=== PATIENT | female | born 1975 | race Caucasian/White ===

== ENCOUNTER → 2023-06-02 | Emergency (ER) | payer OTHER, SELFPAY ==
[~2023-06-02] MED LIST: LORazepam 2 MG/ML VIAL ONE; NA CHLORIDE 0.9% 1,000 ML ONE; TDAP (DIPHTH,PERTUSS(ACELL),TET VAC) 0.5 ML VIAL IMVAC ONE
--- NOTE | 2023-06-02 18:04 | RAD REPORT ---
EXAM DESCRIPTION: CT - [id number] - 06/02/2023 5:49 pm CLINICAL HISTORY: Trauma, head and neck injury. TRAUMA COMPARISON: No comparisons TECHNIQUE: Axial 5 mm thick images of the head were obtained. Axial 2 mm thick images of the cervical spine were obtained with sagittal and coronal reconstruction images generated and reviewed. All CT scans are performed using dose optimization technique as appropriate and may include automated exposure control or mA/KV adjustment according to patient size. FINDINGS: CT HEAD WITHOUT CONTRAST: Limited by motion. No acute hemorrhage, hydrocephalus or extra-axial collection is identified.No area s of brain edema or midline shift. The paranasal sinuses and mastoids are clear.The calvarium is intact. Left frontal scalp hematoma. CT CERVICAL SPINE WITHOUT CONTRAST: No fracture or subluxation.No prevertebral soft tissues swelling is identified. IMPRESSION: No acute intracranial or cervical spine findings.Motion artifact. Left frontal scalp swe lling.
[2023-06-02 18:28] LABS: Barbiturates NEGATIVE (NEGATIVE); Benzodiazepines POSITIVE (NEGATIVE); Cocaine NEGATIVE (NEGATIVE); METHAMPHETAM POSITIVE (NEGATIVE); Methadone NEGATIVE (NEGATIVE); Opiates NEGATIVE (NEGATIVE); Phencyclidine NEGATIVE (NEGATIVE); THC Cannibis NEGATIVE (NEGATIVE)
[2023-06-02 18:32] LABS: Potassium 3.6 mEq/L (3.5-5.1)
[2023-06-02 18:43] LABS: Absolute Lymphocytes (CBC) 1.5 K/uL (0.7-4.9); Hematocrit 42.1 % (36.0-45.0); Lymphocytes % 18.9 % (15.3-44.8); MCV 91.9 fL (80-100); MPV 8.7 fL (7.6-11.3); Platelets 263 thou/uL (152-406); RBC Red Blood Cell Count 4.58 M/uL (3.86-4.86)
--- NOTE | 2023-06-02 19:29 | RAD REPORT ---
EXAM DESCRIPTION: RAD - Knee Right 3 View - 06/02/2023 7:21 pm CLINICAL HISTORY: puncture COMPARISON: No comparisons FINDINGS/IMPRESSION: No acute fracture. No malalignment. No significant focal degenerative changes.
--- NOTE | 2023-06-02 20:29 | ER ---
Nurse's Notes [facility] Name: Polina Bermudez Age: 47 yrs Sex: Female : 1975 Arrival Date: 06/02/2023 Time: 16:56 Bed 3 Private MD: Diagnosis: methamphetamine abuse;Contusion of scalp, initial encounter;Laceration without foreign body of knee Presentation: 06/02 17:17 Chief complaint: EMS states: EMS reports pt is in care home today for public intoxication. tl4 EMS reports pt urinated on herself and then had an unwitnessed fall while PD was cleaning her cell. Pt is unable to coherently answer any questions or communicate. Pt baseline mental status is unknown. Coronavirus screen: At this time, the client does not indicate any symptoms associated with coronavirus-19. Ebola Screen: No symptoms or risks identified at this time. Initial Sepsis Screen: Does the patient meet any 2 criteria? No. Patient's initial sepsis screen is negative. Does the patient have a suspected source of infection? No. Patient's initial sepsis screen is negative. Risk Assessment: Do you want to hurt yourself or someone else? Patient reports no desire to harm self or others. Onset of symptoms was June 02, 2023 at 16:30. 17:17 Method Of Arrival: EMS: [facility] tl4 17:17 Acuity: ASIA 3 tl4 Triage Assessment: 17:24 General: Appears in no apparent distress. Behavior is restless, uncooperative. Pain: tl4 Complains of pain in right leg. EENT: No deficits noted. No signs and/or symptoms were reported regarding the EENT system. Neuro: No deficits noted. Denies weakness blurred vision dizziness, headache. Cardiovascular: No deficits noted. Denies chest pain, diaphoresis, lightheadedness, palpitations, syncope. Respiratory: No deficits noted. Denies cough, shortness of breath. GI: No deficits noted. No signs and/or symptoms were reported involving the gastrointestinal system. : No deficits noted. No signs and/or symptoms were reported regarding the genitourinary system. Derm: No deficits noted. No signs and/or symptoms reported regarding the dermatologic system. Musculoskeletal: Reports pain in right leg. Injury Description: Avulsion sustained to right knee Head injury sustained to forehead is closed, did not have loss of consciousness, swelling noted to left upper forehead. Historical: - Allergies: 17:23 No Known Allergies; tl4 - Home Meds: 17:38 None [Active]; tl4 - PMHx: 17:38 None; tl4 - PSHx: 17:38 None; tl4 - Immunization history:: Adult Immunizations unknown. - Social history:: Smoking status: Patient reports the use of cigarette tobacco products, smokes one-half pack cigarettes per day. Screenin:39 [facility] ED Fall Risk Assessment (Adult) History of falling in the last 3 months, tl4 including since admission Yes- single mechanical fall (1 pt) Confusion or Disorientation Yes (5 pts) Intoxicated or Sedated Yes (3 pts) Impaired Gait Yes (1 pt) Mobility Assist Device Used No (0 pt) Altered Elimination No (0 pt) Score/Fall Risk Level 3 or more points = High Risk Oriented to surroundings, Maintained a safe environment, Educated pt \T\ family on fall prevention, incl call for assistance when getting out of bed, Assessed \T\ reinforced patient's understanding of fall precautions, Provided non-skid footwear, Hourly rounding (assess needs \T\ fall precautionary measures) done, Used ambulatory aids as needed (educated on \T\ assisted with), Used gait belt as appropriate Offered frequent toileting (1:1 observation), Utilized family, sitter, or virtual spool tender as indicated. Abuse screen: Denies threats or abuse. Denies injuries from another. Nutritional screening: No deficits noted. Tuberculosis screening: No symptoms or risk factors identified. Assessment: 17:36 Reassessment: pt refuses to stay in bed or have any monitoring equipment in place. Pt tl4 repeatedly redirected to lay in bed. Pt will require a product safety test engineer. 19:32 Reassessment: Patient appears in no apparent distress at this time. No changes from km8 previously documented assessment. pt being told multiple times to lay back in bed with attempts to get out of bed; tried to reorient pt. 20:30 Reassessment: Patient appears in no apparent distress at this time. No changes from km8 previously documented assessment. 21:13 Reassessment: Patient appears in no apparent distress at this time. No changes from km8 previously documented assessment. BLAYNE Dc tried to call phone number pt provided, but that is not a working number; pt unable to provide any other numbers. 22:36 Reassessment: Patient appears in no apparent distress at this time. Patient and/or km8 family updated on plan of care and expected duration. Pain level reassessed. Patient is alert, oriented x 3, equal unlabored respirations, skin warm/dry/pink. Patient states symptoms have improved. pt A\T\Ox3; pt unaware of how long she has been here and how she got here but does know what she did before being arrested; pt IV d/c'd and pt getting dressed at this time. Vital Signs: 17:17 BP 139 / 94; Pulse 96; Resp 16; Temp 98.1(O); Pulse Ox 100% on R/A; Weight 77.11 kg tl4 (M); Height 5 ft. 5 in. ; 18:50 BP 170 / 105; Pulse 67; Resp 16; Pulse Ox 100% on R/A; tl4 22:35 BP 131 / 99; Pulse 68; Resp 16; Pulse Ox 100% on R/A; km8 17:17 Body Mass Index 28.29 (77.11 kg, 165.1 cm) tl4 ED Course: 17:04 Patient arrived in ED. eb 17:05 Sophie Dao PA-C is PHCP. sb4 17:05 Leighton Figueredo MD is Attending Physician. sb4 17:23 Triage completed. tl4 17:27 Arm band placed on Patient placed in an exam room, on a stretcher. tl4 17:40 Patient has correct armband on for positive identification. Bed in low position. Call tl4 light in reach. Side rails up X2. product safety test engineer at bedside. Provided Education on: ed process. pt refused to leave monitoring equipment in place. Pt is eating her pulse ox and tears off the BP cuff and monitor leads. Noise minimized. Lights dimmed. Moved to private room. pt has open curtain/door to ensure safety of patient and sitter pt refuses to remain covered by gown or blanket. Pt continuously exposes her breasts despite verbal redirection and physical covering for modesty.. 17:43 Maintain EMS IV. Dressing intact. Good blood return noted. Site clean \T\ dry. Gauge \T\ tl 4 site: 20g right forearm. 17:50 CT Head C Spine In Process Unspecified. EDMS 18:20 UDS Sent. tl4 18:20 ETOH Level Sent. tl4 18:23 Basic Metabolic Panel Sent. tl4 18:23 CBC with Diff Sent. tl4 18:52 No provider procedures requiring assistance completed. tl4 19:23 Knee Right 3 View XRAY In Process Unspecified. EDMS 19:25 Brianna Herr, RN is Primary Nurse. km8 22:37 IV discontinued, intact, bleeding controlled, No redness/swelling at site. Pressure km8 dressing applied. Administered Medications: 18:20 Drug: Boostrix Tdap IM 0.5 ml IM once; as a single dose {Note: [employer] t[employer] Lot# [id number], Exp 04/28/2025. VIS 11/19/2020.} Route: IM; Site: right deltoid; 19:25 Follow up: Response: No adverse reaction [facility] 18:20 Drug: NS 0.9% IV 1000 ml IV at 1 bolus Per protocol; 1000 mL bolus Route: IV; Rate: 1 tl4 bolus; Site: right forearm; Delivery: Primary tubing; 19:30 Follow up: IV Status: Completed infusion; IV Intake: 1000ml [facility] 18:20 Drug: Ativan IVP 0.5 mg IVP once Route: IVP; Site: right forearm; tl4 19:25 Follow up: Response: No adverse reaction [facility] 19:30 Drug: NS 0.9% IV 1000 ml IV at 1 bolus Per protocol; 1000 mL bolus Route: IV; Rate: 1 km8 bolus; Site: right forearm; 22:37 Follow up: IV Status: Completed infusion; IV Intake: 1000ml [facility] Medication: 18:52 Vaccine Information Statement (VIS) provided today. Questions and/or concerns tl4 addressed. VIS edition date: November 19, 2020. Intake: 19:30 IV: 1000ml; Total: 1000ml. km8 22:37 IV: 1000ml; Total: 2000ml. km8 Outcome: 20:28 Discharge ordered by MD. mauro 23:12 Patient left the ED. km8 Signatures: Dispatcher [employer] EDMS Charla Alanis Sophia, PAMartinaC PAMartinaC Brianna Lewis RN HARRISON 8 LogdaRanjit woodward RN RN tl4 Corrections: (The following items were deleted from the chart) 17:39 17: Home Meds: Unable to obtain; tl4 tl4 : PMHx: Unable to Obtain; tl4 tl4 PSHx: Unable to Obtain; tl4 tl4
--- NOTE | 2023-06-02 20:29 | EDPHYS ---
Physician Documentation [facility] Name: Polina Bermudez Age: 47 yrs Sex: Female : 1975 Arrival Date: 06/02/2023 Time: 16:56 Bed 3 Private MD: ED Physician Leighton Figueredo HPI: 06/02 17:13 This 47 yrs old Female presents to ER via Unassigned with complaints of fall. sb4 17:13 Patient presents after reported fall while in [facility]. She was arrested earlier today for sb4 public intoxication. While she was in holding, they heard her fall down, noted she had urinated all over herself sustained a hematoma to her left forehead and a small laceration to her right knee. History is very limited due to patient's intoxicated state. Historical: - Allergies: 17:23 No Known Allergies; tl4 - Home Meds: 17:38 None [Active]; tl4 - PMHx: 17:38 None; tl4 - PSHx: 17:38 None; tl4 - Immunization history:: Adult Immunizations unknown. - Social history:: Smoking status: Patient reports the use of cigarette tobacco products, smokes one-half pack cigarettes per day. ROS: 17:13 Unable to obtain ROS due to altered mental status, patient being uncooperative, sb4 Exam: 17:13 ENT: Mucous membranes moist. Cardiovascular: Regular rate and rhythm with a normal S1 sb4 and S2. Respiratory: Lungs have equal breath sounds bilaterally, clear to auscultation and percussion. No rales, rhonchi or wheezes noted. No increased work of breathing, no retractions or nasal flaring. Abdomen/GI: Soft, non-tender, no distension. MS/ Extremity: Pulses equal, no cyanosis. Neurovascular intact. Full, normal range of motion. 17:13 Constitutional: The patient appears in no acute distress, alert, awake, unkempt, 17:13 Head/face: Noted is hematoma, that is moderate, of the forehead, 17:13 Eyes: Pupils: equal, round, and reactive to light and accomodation, Extraocular movements: intact throughout, 17:13 Skin: injury, laceration(s), the wound is approximately 1.5 cm(s), with a depth of .7 cm(s), of the right knee, that can be described as no foreign body, linear, without bleeding, Vital Signs: 17:17 BP 139 / 94; Pulse 96; Resp 16; Temp 98.1(O); Pulse Ox 100% on R/A; Weight 77.11 kg tl4 (M); Height 5 ft. 5 in. ; 18:50 BP 170 / 105; Pulse 67; Resp 16; Pulse Ox 100% on R/A; tl4 22:35 BP 131 / 99; Pulse 68; Resp 16; Pulse Ox 100% on R/A; km8 17:17 Body Mass Index 28.29 (77.11 kg, 165.1 cm) tl4 Laceration: 19:05 Wound Repair of 2.5cm ( 1.0in ) subcutaneous laceration to right knee. Distal sb4 neuro/vascular/tendon intact. Wound prep: Simple cleansing with hibiclenz by me, Wound irrigation with saline by me. Skin closed with 2 4-0 Prolene using simple sutures and sterile technique. Dressed with non-adherent dressing. Patient tolerated well. MDM: 17:05 Patient medically screened. sb4 19:05 Data reviewed: vital signs, nurses notes, lab test result(s), radiologic studies, and sb4 as a result, I will discharge patient. 20:08 Awaiting: transportation home after being given discharge instructions, patient to [facility] return to her baseline. 20:26 Counseling: I had a detailed discussion with the patient and/or guardian regarding the sb4 historical points, exam findings, and any diagnostic results supporting the discharge/admit diagnosis, lab results, radiology results, to return to the emergency department if symptoms worsen or persist or if there are any questions or concerns that arise at home. 06/02 17:12 Order name: Basic Metabolic Panel; Complete Time: 18:33 sb4 06/02 17:12 Order name: CBC with Diff; Complete Time: 18:47 sb4 06/02 17:12 Order name: ETOH Level; Complete Time: 18:45 sb4 06/02 17:12 Order name: UDS; Complete Time: 18:29 sb4 06/02 17:12 Order name: CT Head C Spine; Complete Time: 18:11 sb4 06/02 17:12 Order name: Knee Right 3 View XRAY; Complete Time: 19:32 sb4 06/02 17:12 Order name: Labs collected and sent; Complete Time: 18:22 sb4 Administered Medications: 18:20 Drug: Boostrix Tdap IM 0.5 ml IM once; as a single dose {Note: [employer] tl4 [employer] Lot# [id number], Exp 04/28/2025. VIS 11/19/2020.} Route: IM; Site: right deltoid; 19:25 Follow up: Response: No adverse reaction 8 18:20 Drug: NS 0.9% IV 1000 ml IV at 1 bolus Per protocol; 1000 mL bolus Route: IV; Rate: 1 tl4 bolus; Site: right forearm; Delivery: Primary tubing; 19:30 Follow up: IV Status: Completed infusion; IV Intake: 1000ml 8 18:20 Drug: Ativan IVP 0.5 mg IVP once Route: IVP; Site: right forearm; tl4 19:25 Follow up: Response: No adverse reaction 8 19:30 Drug: NS 0.9% IV 1000 ml IV at 1 bolus Per protocol; 1000 mL bolus Route: IV; Rate: 1 km8 bolus; Site: right forearm; 22:37 Follow up: IV Status: Completed infusion; IV Intake: 1000ml 8 Disposition: 20:29 Chart complete. sb4 Disposition Summary: 06/02/23 20:28 Discharge Ordered Notes: Location: Home sb4 Problem: new sb4 Symptoms: have improved sb4 Condition: Stable sb4 Diagnosis - methamphetamine abuse sb4 - Contusion of scalp, initial encounter sb4 - Laceration without foreign body of knee sb4 Followup: sb4 - With: Private Physician - When: 10 - 14 days - Reason: Staple/Suture removal Discharge Instructions: - Discharge Summary Sheet sb4 - Hematoma, [id number] sb4 - Laceration Care, Adult, [id number] sb4 - Facial or Scalp Contusion, [id number] sb4 Forms: - Thank You Letter sb4 - Patient Portal Instructions sb4 - Leadership Thank You Letter sb4 Signatures: Dispatcher [employer] Sophie White PA-C PA-C sb4 Brianna Herr RN RN km8 Ranjit Melgar RN RN tl4 Corrections: (The following items were deleted from the chart) 17:39 17:23 Home Meds: Unable to obtain; tl4 tl4 17:39 17:23 PMHx: Unable to Obtain; tl4 tl4 17:39 17:23 PSHx: Unable to Obtain; tl4 tl4 19:05 19:05 Wound Repair of 2.5cm ( 1.0in ) subcutaneous laceration to right knee. Distal sb4 neuro/vascular/tendon intact. Wound prep: Simple cleansing with betadine by me, Wound irrigation with saline by me. Skin closed with 2 4-0 Prolene using simple sutures and sterile technique. Dressed with non-adherent dressing. Patient tolerated well. sb4
[2023-06-02 23:22] VITALS: BP 131/99; TEMP 98.1; O2SAT 100
== END ==
LOC: ER 16:56
PROC: 0HQKXZZ Repair Right Lower Leg Skin, External Approach (ICD-10-PCS; principal; 2023-06-02)
DX: F15.10 Other stimulant abuse, uncomplicated (principal); S00.03XA Contusion of scalp, initial encounter; S81.011A Laceration without foreign body, right knee, initial encounter; F17.210 Nicotine dependence, cigarettes, uncomplicated
CPT/HCPCS: 36415; 70450; 72125; 80048; 80307; 82077; 85025; 96361; 96372; 96374; 99284; J7030